=== PATIENT | male | born 1945 | race Caucasian/White ===

== ENCOUNTER 2022-06-21 08:24 | Outpatient (CLI) | payer MEDICARE, BC, SELFPAY ==
[2022-06-21 10:48] LABS: Albumin* 4.1 g/dL (3.3-5.0); Chloride* 110 mmol/L (96-114); Sodium* 143 mmol/L (135-149)
[2022-06-21 10:50] LABS: Cholesterol* 177 mg/dL (90-199); Creatinine* 0.7 mg/dL (0.5-1.5); Estimated Glomerular Filt Rate 95 ml/min
[2022-06-21 10:51] LABS: Alanine Aminotransferase* 22 U/L (4-50); Alkaline Phosphatase* 77 U/L (40-150); Aspartate Amino Transferase* 27 U/L (12-35); Bilirubin Total* 0.8 mg/dL (0.1-1.5); Blood Urea Nitrogen* 20 mg/dL (7-30); Calcium* 9.1 mg/dL (8.4-10.6); Carbon Dioxide* 26 mmol/L (20-32); HDL Cholesterol* 73 mg/dL (>=40); LDL Cholesterol Calculated 89 mg/dL (<100); Total Protein* 6.8 g/dL (6.0-8.3); Triglycerides* 76 mg/dL (40-149)
[2022-06-21 11:05] LABS: Glucose* 86 mg/dL (60-115)
[2022-06-21 11:19] LABS: PSA Screen* 1.43 ng/mL (0.10-4.00)
== END 2022-06-21 08:25 | disposition home or self-care (01) ==
PROVIDERS: PCP Internal Medicine; Visit Provider Internal Medicine
DX: I10 Essential (primary) hypertension (principal); E78.5 Hyperlipidemia, unspecified; Z12.5 Encounter for screening for malignant neoplasm of prostate
CPT/HCPCS: 80053; 80061; 84153

== ENCOUNTER 2022-07-10 13:30 | Outpatient (RCR) | payer MEDICARE, BC, SELFPAY ==
--- NOTE | 2022-05-26 13:51 | PT.OPEX ---
[facility] PT [facility] Outpatient Eval Start: 05/25/22 08:56 Freq: Status: Active Protocol: Document 05/25/22 08:57 [facility] (Rec: 05/25/22 09:37 [facility] [id number]) E-signed By Carlton Freire, PT Physical Therapy Outpatient Evaluation Insurance Information Insurance Name Medicare B Medical Diagnosis Strain of unspecified muscle, fascia and tendon at shoulder and upper arm level S46.911N Treating Diagnosis Right shoulder pain M25.[address] Phillips Subjective Subjective Right shoulder pain started ~3 -4 years ago after working on belt glass sander, repetitive use of right UE. In April 2022, he was working with tractor/ crank, pushing forward and rotating. He felt significant pain anterolateral shoulder. Pain has lessened since then, but he still has pain with movements, sleeping. He also has crepitus. Initially he experienced pain down the right arm from the shoulder; now it is isolated to front and back of shoulder. Changes positions a lot during sleep. Not currrently taking any pain meds. Pt RH Pain Comments At worst: 4/10 0/10 at rest Date of Last Physician Visit 04/26/22 Current Work Status Retired Occupation Retired dentist Preferred Name [employer] Therapy Limitations/Systems Review Not Limited Objective Range of Motion Right shoulder: AROM/ PROM Flexion: WNL Abduction: ltd when elbow flexed. Arm straight WNL ER: WNL/symmetric IR: reach to L3 Elbow flexion: 5/5, painfree Strength R shoulder: grossly 5/5, pain with abduction Swelling None Palpation No palpation tenderness right deltoid/bursa + PT right medial scap border mm + minimal PT over posterior cuff mild scapular hypomobility mild PT right biceps tendon, SH Posture Normal Mild asymmetry w/ scapulohumeral rhythm. no significant scap winging. Other/Pertinent Objective Right shoulder: Neers: negative HK Impingement test: positive with IR Sulcus sign: negative Empty can: negative Assessment Assessment/Impression 76 year old active male presents with right shoulder chronic pain x 3-4 years but with exacerbation ~one month ago after using a tractor crank, pushing and turning motion. Pain has lessened since then so is intermittent. He feels it most when using a power yamila, and reach out to the side. He presents with signs and symptoms consistent with right shoulder subacromial impingement/ mild posterior cuff tendinopathy. In general, right shoulder strength testing was strong and painfree except ER and thumb down scaption were strong but painful, implicating supraspinatus. Patient to benefit from skilled PT for manual therapy to reduce soft tissue pain and for progression of HEP to facilitate RTC strength/ flexibility and scapular stabilization. Primary Functional Limitations working with power yamila, don jacket/shirt, reach/lift arm out to side Plan of Care Rehabilitation Potential Excellent Rehabilitation Potential Comments self-motivated, otherwise healthy Physical Therapy Goals In 6-8 weeks, patient will: 1) Be able to use orbital power yamila with right shoulder painfree 2) Don/doff jacket painfree 3) Reach out to the side to retrieve 5 lb object painfree Coordination/Communication With Referral Source Treatment Plan/Direct Interventions Joint Mobilization,Manual Therapy,Neuromuscular Re-ed, Self-Care/Home Management, Therapeutic Activities, Therapeutic Exercises Direct Interventions Clarification R shoulder RTC strength/ Comments flexibility, scap stab, STM post cuff/scap border Frequency/Duration 1x/week for 6-8 weeks Patient Will Be Discharged From Therapy Independent w/HEP, Independently Progressing Evaluation Billing Untimed Code Treatment Minutes 25 Complexity Low Certification Information Initial Certification Date 05/25/22 Ending Certification Date 08/24/22 Provider Signature Shows Agreement With POC & Medical Necessity Physician Signature & Date Requested Please Sign/Date Here Physician Comment/Change : Physician NPI Number #
== END 2022-07-13 16:17 | disposition home or self-care (01) ==
PROVIDERS: PCP Internal Medicine; Visit Provider Internal Medicine
DX: M25.511 Pain in right shoulder (principal); S46.919A Strain of unspecified muscle, fascia and tendon at shoulder and upper arm level, unspecified arm, initial encounter; Z51.89 Encounter for other specified aftercare
CPT/HCPCS: 97110; 97140; 97161

== ENCOUNTER 2023-01-24 08:07 | Day surgery (SDC) | payer MEDICARE, BC, SELFPAY ==
[2023-01-24] MEDS: TETRACAINE 0.5% OPHTH 1 DROP EYE-RIGHT ×2 (08:30→08:35)
[2023-01-24] MEDS: KETOROLAC OPHTH 0.5% 1 DROP EYE-RIGHT ×2 (08:30→08:35)
[2023-01-24 08:41] VITALS: BMI 24.8
[2023-01-24 08:45] VITALS: BP 146/90; PULSE 62; RESP 16; TEMP 37; O2SAT 100
[2023-01-24] MEDS: SODIUM CHLORIDE 0.9 % (FLUSH) 10 ML SYRINGE IVF (08:47)
--- NOTE | 2023-01-24 08:50 | W.ANESCHARGE ---
Anesthesia Charges Start Date/Time Anesthesia Start Date: 01/24/23 Anesthesia Start Time: 09:43 Stop Date/Time Anesthesia Stop Date: 01/24/23 Anesthesia Stop Time: 10:17 Summary Extremes of Age - Over 70 or under 1: MDA
--- NOTE | 2023-01-24 08:51 | SUR.PREOP ---
The eye drops brought by the patient (Ketorolac and Prednisolone) are examined and I have determined they are labeled by the patient's pharmacy for this patient as prescribed by the surgeon. The bottles are intact, recently obtained and appear to be correct. [id number]
[2023-01-24] MEDS: TETRACAINE 0.5% OPHTH 2 DROP EYE-BOTH (09:46)
[2023-01-24] MEDS: BALANCED SALT IRRIG SOLN 15 ML EYE-RIGHT (09:50)
--- NOTE | 2023-01-24 10:17 | W.ANESCHARGE ---
Anesthesia Charges Start Date/Time Anesthesia Start Date: 01/24/23 Anesthesia Start Time: 09:43 Stop Date/Time Anesthesia Stop Date: 01/24/23 Anesthesia Stop Time: 10:17
[2023-01-24 10:20] VITALS: BP 138/83; PULSE 57; RESP 14; TEMP 36.9; O2SAT 100
--- NOTE | 2023-01-24 10:22 | P.OPTPRC_ITS ---
Procedure Note Date of procedure: 01/24/[address] [facility] bill your pro fee for this procedure?: Yes Procedure Description: SURGEON: Tayler Marin MD PREOPERATIVE DIAGNOSIS: Nuclear sclerotic cataract, right eye. POSTOPERATIVE DIAGNOSIS: Nuclear sclerotic cataract, right eye. NAME OF OPERATION: Phacoemulsification of cataract with posterior chamber intraocular lens implantation in the right eye. ANESTHESIA: Topical. ESTIMATED BLOOD LOSS: Less than 2 cc. COMPLICATIONS: None. PATHOLOGY SPECIMEN: None. INDICATIONS: See consult note for details. The risks, benefits and alternatives of the procedure were explained to the patient, who elected to proceed and signed informed consent to do so. PROCEDURE: The patient was brought to the pre-holding area where the right eye was identified as the operative eye. I placed my initials above this eye. The patient received eye drops consisting of 0.5% tetracaine, 1% tropicamide, 10% phenylephrine, and 0.5% ketorolac. The patient was then brought to the operating room where the right eye was again identified as the operative eye. The eye was prepped with Betadine and draped in the usual sterile ophthalmic fashion. A #15 super-sharp blade was used to create a paracentesis site. 1% non-preserved intracameral lidocaine was injected into the anterior chamber. Endocoat was injected into the anterior chamber. A 2.4 mm keratome was used to create a three-plane self-sealing incision 1 mm anterior to the temporal limbus. A cystotome was used to create an anterior capsular leaflet. The Utrata forceps were used to extend this to form a continuous curvilinear capsulorrhexis. Hydrodissection was performed. The cataract was removed with phacoemulsification using the [id number] technique. The irrigation and aspiration tip was used to remove the remaining cortex. Healon was injected into the capsular bag. An JOANNE ZCB00 intraocular lens of 20.0 diopters was injected into the capsular bag. The irrigation and aspiration tip was used to remove the remaining viscoelastic. Balanced salt solution on a cannula was used to hydrate the wound, and the wound was found to be watertight. The pupil was noted to be round. DISPOSITION: The patient was taken to the recovery room and discharged to home in stable condition. The patient was instructed to call me or go to the emergency department with any sudden change, including dramatic loss of vision, severe pain in the eye or eyebrow region, nausea, or vomiting. The patient will follow up in the clinic tomorrow morning.
== END 2023-01-24 10:45 | disposition home or self-care (01) ==
LOC: OR 08:10
PROVIDERS: PCP Internal Medicine; Visit Provider Ophthalmology
PROC: (CPT 66984; principal; 2023-01-24 08:15)
DX: H25.11 Age-related nuclear cataract, right eye (principal)
CPT/HCPCS: 66984; 00142; 99100; A9270; J2250; J3010; V2632

== ENCOUNTER 2023-02-07 08:09 | Day surgery (SDC) | payer MEDICARE, BC, SELFPAY ==
[2023-02-07] MEDS: TETRACAINE 0.5% OPHTH 1 DROP EYE-LEFT ×2 (08:25→08:35)
[2023-02-07 08:29] VITALS: BMI 24.8
[2023-02-07] MEDS: KETOROLAC OPHTH 0.5% 1 DROP EYE-LEFT ×2 (08:32→08:41)
[2023-02-07 08:34] VITALS: BP 163/95; PULSE 55; RESP 20; TEMP 36.6; O2SAT 99
[2023-02-07] MEDS: SODIUM CHLORIDE 0.9 % (FLUSH) 10 ML SYRINGE IVF (08:49)
[2023-02-07] MEDS: TETRACAINE 0.5% OPHTH 2 DROP EYE-LEFT (09:36)
[2023-02-07] MEDS: BALANCED SALT IRRIG SOLN 15 ML EYE-LEFT (09:38)
--- NOTE | 2023-02-07 09:39 | P.ANES_ITS ---
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
--- NOTE | 2023-02-07 10:02 | W.PM.OPTPROC ---
Procedure Note Date of procedure: 02/07/23 Will [facility] bill your pro fee for this procedure?: Yes Procedure Description: SURGEON: Tayler Marin MD PREOPERATIVE DIAGNOSIS: Nuclear sclerotic cataract, left eye. POSTOPERATIVE DIAGNOSIS: Nuclear sclerotic cataract, left eye. NAME OF OPERATION: Phacoemulsification of cataract with posterior chamber intraocular lens implantation in the left eye. ANESTHESIA: Topical. ESTIMATED BLOOD LOSS: Less than 2 cc. COMPLICATIONS: None. PATHOLOGY SPECIMEN: None. INDICATIONS: See consult note for details. The risks, benefits and alternatives of the procedure were explained to the patient, who elected to proceed and signed informed consent to do so. PROCEDURE: The patient was brought to the pre-holding area where the left eye was identified as the operative eye. I placed my initials above this eye. The patient received eye drops consisting of 0.5% tetracaine, 1% tropicamide, 10% phenylephrine, and 0.5% ketorolac. The patient was then brought to the operating room where the left eye was again identified as the operative eye. The eye was prepped with Betadine and draped in the usual sterile ophthalmic fashion. A #15 super-sharp blade was used to create a paracentesis site. 1% non-preserved intracameral lidocaine was injected into the anterior chamber. Endocoat was injected into the anterior chamber. A 2.4 mm keratome was used to create a three-plane self-sealing incision 1 mm anterior to the temporal limbus. A cystotome was used to create an anterior capsular leaflet. The Utrata forceps were used to extend this to form a continuous curvilinear capsulorrhexis. Hydrodissection was performed. The cataract was removed with phacoemulsification using the [id number] technique. The irrigation and aspiration tip was used to remove the remaining cortex. Healon was injected into the capsular bag. An JOANNE ZCB00 intraocular lens of 20.0 diopters was injected into the capsular bag. The irrigation and aspiration tip was used to remove the remaining viscoelastic. Balanced salt solution on a cannula was used to hydrate the wound, and the wound was found to be watertight. The pupil was noted to be round. DISPOSITION: The patient was taken to the recovery room and discharged to home in stable condition. The patient was instructed to call me or go to the emergency department with any sudden change, including dramatic loss of vision, severe pain in the eye or eyebrow region, nausea, or vomiting. The patient will follow up in the clinic tomorrow morning.
[2023-02-07 10:07] VITALS: BP 144/89; PULSE 52; RESP 16; TEMP 36.6; O2SAT 99
--- NOTE | 2023-02-07 11:06 | W.ANESCHARGE ---
Anesthesia Charges Start Date/Time Anesthesia Start Date: 02/07/23 Anesthesia Start Time: 09:30 Stop Date/Time Anesthesia Stop Date: 02/07/23 Anesthesia Stop Time: 10:02 Summary Extremes of Age - Over 70 or under 1: MDA
== END 2023-02-07 10:30 | disposition home or self-care (01) ==
PROVIDERS: PCP Internal Medicine; Visit Provider Ophthalmology
PROC: (CPT 66984; principal; 2023-02-07 08:15)
DX: H25.12 Age-related nuclear cataract, left eye (principal)
CPT/HCPCS: 66984; 00142; 99100; A9270; J2250; J3010; V2632

== ENCOUNTER 2023-07-23 08:12 | Outpatient (CLI) | payer MEDICARE, BC, SELFPAY | END 2023-07-23 08:13 | disposition home or self-care (01) | LOC: NFLDREF 07-25 11:31 | PROVIDERS: PCP Internal Medicine; Referring Provider Internal Medicine; Visit Provider Internal Medicine | DX: E78.5 Hyperlipidemia, unspecified (principal); I10 Essential (primary) hypertension; Z12.5 Encounter for screening for malignant neoplasm of prostate | CPT/HCPCS: 80053; 80061; G0103 ==

== ENCOUNTER 2024-06-18 10:06 | Emergency (ER) | payer MEDICARE, BC, SELFPAY ==
--- OUTSIDE RECORDS SUMMARY | 2024-06-18 10:08 | XMS_ITS | Clinical Summary ---
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 Gender Identity Not on file Sexual Orientation Not on file Plan of Treatment Health Maintenance Due Date Last Done Comments Tdap 08/04/1956 Depression screening for age 12+ 1956 BMI (ht and wt on same day) for age 18+ 1962 Hepatitis C screening for age 18-79 1962 Tetanus booster 1964 Pneumococcal series for age 50+ (1 of 1 - PCV) 995 Zoster (shingles) series for age 50+ (1 of 2) 08/03/18 95 Medicare Wellness for age 65+ 2009 RSV vaccine for adults or pr egnancy (1 - 1-dose 75+ series) 08/04/2019 COVID-19 vaccine series (2 - season) 4 01/24/2022 Influenza for age 65+ 01/13/2024 Insurance BLUE CROSS [place] BLUE [place] PB ONLY Care Teams Starch Treating Assistant Relationship Specialty Start Date End Date Bill Phillips MD [address] [place] [id number] PCP - General Internal Medicine 06/22/22
[2024-06-18 10:09] VITALS: BP 147/81; PULSE 80; RESP 16; TEMP 36.1; O2SAT 98; BMI 24.8
[2024-06-18] MEDS: 0.9 % SODIUM CHLORIDE 1000 ml 1,000 ML 6000 ML IV (10:30)
[2024-06-18 10:49] VITALS: O2SAT 99
[2024-06-18 10:53] LABS: Troponin, Point-of-Care* 0.01 ng/ml (0.01-0.04)
--- NOTE | 2024-06-18 10:55 | ED_ITS ---
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 He has had intermittent AFib in the past. His watch confirmed at last night. He went to bed feeling fine and had no arrhythmia symptoms. He is not on any blood thinners. He is on amlodipine, simvastatin, and he just completed prednisone for a muscle ache issue. The patient denies fever, chills, cough. He has no chest pain. His rate is controlled at 80 T 85. He does appear to be in AFib with controlled rate. He is pretty asymptomatic as mention. He has had no leg swelling edema. No history of coronary artery disease. He does report that he has had several episodes of AFib especially since COVID illness several years ago. At that time he switch from metoprolol to amlodipine. Usually his little bursts of arrhythmia or gone within a couple of hours. Does report that he had a yusuf drink last night but he has had beer alcohol occasionally in the past he does not drink very often. Has had some family history of vascular disease and rhythm issues but a an elderly grandparents. Related Data Previous Rx's ?Medication ?Instructions ?Recorded amlodipine 5 mg tablet 5 mg PO .Bedtime Hypertension #90 04/24/24 tabs simvastatin 40 mg tablet 40 mg PO .Bedtime Hyperlipidemia 04/24/24 #90 tabs prednisone 20 mg tablet 20 mg PO BID #10 tabs 06/11/24 apixaban 5 mg tablet (Eliquis) 5 mg PO BID #60 tabs 06/18/24 metoprolol succinate 25 mg 25 mg PO DAILY #30 tabs 06/18/24 tablet,extended release 24 hr Allergies Allergy/AdvReac Type Severity Reaction Status Date / Time No Known Drug Allergies Allergy Verified 06/11/24 16:28 [facility] Medical History Radiculopathy ?M54.10 - Radiculopathy, site unspecified (ICD-10) Abdominal wall strain ?S39.011A - Strain of muscle, fascia and tendon of abdomen, initial encounter (ICD-10) Health care directive on file ?Z78.9 - Other specified health status (ICD-10) COVID-19 ?U07.1 - COVID-19 (ICD-10) Rectal Pain ?K62.89 - Other specified diseases of anus and rectum (ICD-10) Otitis media ?H66.90 - Otitis media, unspecified, unspecified ear (ICD-10) Idiopathic neuropathy ?G60.9 - Hereditary and idiopathic neuropathy, unspecified (ICD-10) Shoulder strain ?S46.919A - Strain of unspecified muscle, fascia and tendon at shoulder and upper arm level, unspecified arm, initial encounter (ICD-10) Social History What is your current living situation?: I presently have a place to live Problems where you live: declined to answer In the past 12 months, utilities in danger of being shut off: no In past 12 months, lack of transportation kept you from medical appts, meetings, work, or getting things needed for daily living: no In the past 12 mos, have been you worried that your food would run out before you had money to buy more?: never true In the past 12 mos, the food you bought just didn't last and you didn't have money to buy more?: never true Smoking Status: Never smoker How often do you have a drink containing alcohol: 4 or more times a week How many standard drinks containing alcohol do you have on a typical day: 1 or 2 How often do you have six or more drinks on one occasion: Never AUDIT-C Alcohol total score: 4 Non-prescribed substance use: denies use Caffeine: Yes How often does anyone, including family, friends and others, physically hurt you : never How often does anyone, including family, friends and others, insult or talk down to you: never How often does anyone, including family, friends and others, threaten you with harm: never How often does anyone, including family, friends and others, scream or curse at you: never Exam Narrative: Exam Narrative: Objective: Vital signs show elevated blood pressure 147/81 otherwise unremarkable Alert or x3 very pleasant no facial asymmetry neck is supple chest clear Heart irregular regular 2/6 systolic murmur Abdomen is benign soft nontender Extremities are no edema neurologic nonfocal good peripheral perfusion noted Const: Vital Signs, click to edit/add: Vital Signs - 24 hr 06/18/24 10:09 06/18/24 10:49 06/18/24 11:01 Temperature 97.0 F L Pulse Rate 101 H Pulse Rate [Pulse Oximeter] 80 Respiratory Rate 16 16 Blood Pressure 147/87 H Blood Pressure [Ri ght Upper Arm] 147/81 H Pulse Oximetry 98 99 99 Oxygen Delivery Me thod Room Air 06/18/24 11:50 Temperature Pulse Rate 93 Pulse Rate [Pulse Oximeter] Respiratory Rate 16 Blood Pressure 138/96 H Blood Pressure [Ri ght Upper Arm] Pulse Oximetry 96 Oxygen Delivery Me thod Room Air Course Vital Signs Vital signs: Initial Vital Signs Temperature 97.0 F L 06/18/24 10:09 Temperature Source Temporal Artery Scan 06/18/24 10:09 Pulse Rate 80 06/18/24 10:09 Pulse Rhythm Irregular 06/18/24 10:09 Respiratory Rate 16 06/18/24 10:09 Blood Pressure 147/81 H 06/18/24 10:09 Blood Pressure Mean 103 06/18/24 10:09 Pulse Oximetry 98 06/18/24 10:09 Oxygen Delivery Method Room Air 06/18/24 10:09 Vital Signs Temperature 97.0 F L 06/18/24 10:09 Pulse Rate 80 06/18/24 10:09 Respiratory Rate 16 06/18/24 10:09 Blood Pressure 147/81 H 06/18/24 10:09 Pulse Oximetry 98 06/18/24 10:09 Oxygen Delivery Method Room Air 06/18/24 10:09 Temperature 97.0 F L 06/18/24 10:09 Pulse Rate 93 06/18/24 11:50 Respiratory Rate 16 06/18/24 11:50 Blood Pressure 138/96 H 06/18/24 11:50 Pulse Oximetry 96 06/18/24 11:50 Oxygen Delivery Method Room Air 06/18/24 11:50 Medications Administered Medications: Discontinued Medications Generic Name Dose Route Start Last Admin Trade Name Freq PRN Reason Stop Dose Admin Apixaban 5 mg 06/18/24 11:13 06/18/24 11:38 Apixaban 5 Mg Tablet PO 06/18/24 11:14 5 mg ONCE ONE Administration Sodium Chloride 1,000 mls @ 6,000 mls/hr 06/18/24 11:00 06/18/24 11:40 0.9 % Sodium Chloride 1000 Ml IV 06/18/24 11:09 Infused .Q10M RUFINA Infusion Metoprolol Succinate 25 mg 06/18/24 11:45 06/18/24 11:49 Metoprolol Succinate (Xl) 25 Mg Tab PO 06/18/24 11:46 25 mg ONCE ONE Administration Medical Decision Making MDM Narrative Medical decision making narrative: [age]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 At this point will check his electrolytes, given some IV hydration. Will discuss with Cardiology regarding optimal management. He currently is not anticoagulated. With his age in his hypertension likely would need anticoagulation if remains in AFib. Addendum; 11:32 a.m.: Discussed with Cardiology regarding his AFib and rate control. Given that he has presumed paroxysmal atrial fib the Cardiology Dr. Chaidez recommended that we do anticoagulation and rate control. I will have him switch from amlodipine to metoprolol XL 25 mg daily will have him start Eliquis 5 mg b.i.d.. Will have him set up to see Dr. Right sharp in cardiology. He will need a follow-up echo likely a stress test and Cardiology consultation. Patient was comfortable this and will follow up as directed. He will engage in light activity, good hydration. Lab Data Labs: Lab Results 06/18/24 06/18/24 Range/Units 10:30 10:50 WBC 6.84 (4.50-11.00) K/uL RBC 5.43 (4.30-5.90) m/uL Hgb 15.2 (13.5-17.5) gm/dL Hct 46.6 (37.0-53.0) % MCV 86 (80-100) fL MCH 28 (26-34) pg MCHC 33 (32-36) gm/dL RDW Coeff of [place] 14.0 (11.5-15.5) % Plt Count 202 (140-440) K/uL Neut % (Auto) 38.6 L (42.0-72.0) % Lymph % (Auto) 44.6 H (20-44) % [place] % (Auto) 13.9 H (0.0-11.0) % Eos % (Auto) 2.5 (0.0-7.0) % Baso % (Auto) 0.3 (0.0-3.0) % Neut # (Auto) 2.60 (1.7-7.0) K/uL Lymph # (Auto) 3.10 H (0.90-2.90) K/uL [place] # (Auto) 1.00 H (0.00-0.90) K/UL Eos # (Auto) 0.17 (0.00-0.50) K/uL Baso # (Auto) 0.02 (0.00-0.30) K/uL Abs Immat Gran (auto) 0.01 (0.00-0.30) K/uL Imm/Tot Granulo (auto) 0.1 % Sodium 141 (135-149) mmol/L Potassium 3.7 (3.6-5.1) mmol/L Chloride 107 (96-114) mmol/L Carbon Dioxide 23 (20-32) mmol/L Anion Gap 11 (7-15) mEq/L BUN 26 (7-30) mg/dL Creatinine 0.9 (0.5-1.5) mg/dL Estimated Creat Clear 63.80 Estimated GFR 87 ml/min Glucose 86 (60-115) mg/dL Calcium 9.6 (8.4-10.6) mg/dL Total Bilirubin 0.8 (0.1-1.5) mg/dL Direct Bilirubin 0.2 (0.0-0.5) mg/dL AST 23 (12-35) U/L ALT 23 (4-50) U/L Alkaline Phosphatase 89 (40-150) U/L Total Protein 7.3 (6.0-8.3) g/dL Albumin 4.4 (3.3-5.0) g/dL POC Troponin I 0.01 (0.01-0.04) ng/ml Discharge Plan Discharge Clinical Impression: Atrial fibrillation, Hypertension Patient Disposition: Home, Self-Care Condition: Stable Instructions: A-fib (Atrial Fibrillation) (ED), Hypertension (ED) Additional Instructions: Light activity, Eliquis and metoprolol from the pharmacy as directed, stop amlodipine. We will set up to see Dr. Phillips, and the senior chemist. Follow up appointment is scheduled at [facility] on 06/25 with an 8:00am appointment time. Please check in at 7:50am to complete paperwork. Follow up Cardiology appointment is scheduled at the [facility] on 06/26 with a 3:00pm appointment time. Please check in at 2:50pm to complete paperwork. If you have any questions or need to reschedule any appointment, please call [phone]. Activity Level: Light activity Discharge Diet: Regular Prescriptions: New metoprolol succinate 25 mg tablet extended release 24 hr 25 mg PO DAILY Qty: 30 2RF Eliquis 5 mg tablet 5 mg PO BID Qty: 60 2RF No Action amlodipine 5 mg tablet 5 mg PO .Bedtime Qty: 90 0RF simvastatin 40 mg tablet 40 mg PO .Bedtime Qty: 90 0RF prednisone 20 mg tablet 20 mg PO BID Qty: 10 0RF Follow Up/Referrals: Bill Phillips MD [Primary Care Provider] - Stand Alone Forms: [employer] Info Instructions
[2024-06-18 11:01] VITALS: BP 147/87; PULSE 101; RESP 16; O2SAT 99
--- OUTSIDE RECORDS SUMMARY | 2024-06-18 11:06 | XMS_ITS | Clinical Summary ---
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
[2024-06-18 11:11] LABS: Basophils Absolute Auto 0.02 K/uL (0.00-0.30); Basophils Percent Auto 0.3 % (0.0-3.0); Eosinophils Absolute Auto 0.17 K/uL (0.00-0.50); Eosinophils Percent Auto 2.5 % (0.0-7.0); Hematocrit 46.6 % (37.0-53.0); Hemoglobin* 15.2 gm/dL (13.5-17.5); Immature Granulocytes Abs Auto 0.01 K/uL (0.00-0.30); Immature Granulocytes Pct Auto 0.1 %; Lymphocytes Percent Auto 44.6 % (20-44); Mean Corpuscular HGB Conc 33 gm/dL (32-36); Mean Corpuscular Hemoglobin 28 pg (26-34); Mean Corpuscular Volume 86 fL (80-100); Monocytes Percent Auto 13.9 % (0.0-11.0); Neutrophils Percent Auto 38.6 % (42.0-72.0); Platelet Count* 202 K/uL (140-440); Red Blood Count 5.43 m/uL (4.30-5.90); White Blood Count* 6.84 K/uL (4.50-11.00)
[2024-06-18 11:14] LABS: Slide Review Reflex No
[2024-06-18 11:17] LABS: Chloride* 107 mmol/L (96-114); Potassium* 3.7 mmol/L (3.6-5.1); Sodium* 141 mmol/L (135-149)
[2024-06-18 11:19] LABS: Creatinine* 0.9 mg/dL (0.5-1.5); Estimated Glomerular Filt Rate 87 ml/min
[2024-06-18 11:20] LABS: Anion Gap 11 mEq/L (7-15); Blood Urea Nitrogen* 26 mg/dL (7-30); Calcium* 9.6 mg/dL (8.4-10.6); Carbon Dioxide* 23 mmol/L (20-32); Glucose* 86 mg/dL (60-115)
[2024-06-18] MEDS: APIXABAN 5 MG TABLET PO (11:38)
[2024-06-18 11:42] LABS: Albumin* 4.4 g/dL (3.3-5.0)
[2024-06-18 11:44] LABS: Bilirubin Direct* 0.2 mg/dL (0.0-0.5); Bilirubin Total* 0.8 mg/dL (0.1-1.5); Total Protein* 7.3 g/dL (6.0-8.3)
[2024-06-18 11:45] LABS: Alanine Aminotransferase* 23 U/L (4-50); Alkaline Phosphatase* 89 U/L (40-150); Aspartate Amino Transferase* 23 U/L (12-35)
[2024-06-18] MEDS: METOPROLOL SUCCINATE (XL) 25 MG TAB PO (11:49)
[2024-06-18 11:50] VITALS: BP 138/96; PULSE 93; RESP 16; O2SAT 96
== END 2024-06-18 11:59 | disposition home or self-care (01) ==
PROVIDERS: Emergency Provider Family Medicine; PCP Internal Medicine
DX: I48.91 Unspecified atrial fibrillation (principal); I10 Essential (primary) hypertension
CPT/HCPCS: 36415; 80048; 80076; 84443; 84484; 85025; 93005; 94761; 99285; A9270; J7030

== ENCOUNTER 2024-07-04 12:41 | Outpatient (CLI) | payer MEDICARE, BC, SELFPAY | END 2024-07-04 12:42 | disposition home or self-care (01) | LOC: RAD 12:42 | PROVIDERS: PCP Internal Medicine; Visit Provider Internal Medicine | DX: I48.91 Unspecified atrial fibrillation (principal); I35.1 Nonrheumatic aortic (valve) insufficiency; I34.0 Nonrheumatic mitral (valve) insufficiency; I51.7 Cardiomegaly | CPT/HCPCS: 93306 ==

== ENCOUNTER 2024-09-25 09:00 | Outpatient (CLI) | payer MEDICARE, BC, SELFPAY | END 2024-09-25 09:01 | disposition home or self-care (01) | LOC: NFLDREF 10-01 03:17 | PROVIDERS: PCP Internal Medicine; Referring Provider Internal Medicine; Visit Provider Internal Medicine Cardiovascular Disease | DX: I48.91 Unspecified atrial fibrillation (principal); E78.5 Hyperlipidemia, unspecified | CPT/HCPCS: 80048; 80061 ==

== ENCOUNTER 2024-10-26 08:52 | Outpatient (CLI) | payer MEDICARE, BC, SELFPAY | END 2024-10-26 08:53 | disposition home or self-care (01) | PROVIDERS: PCP Internal Medicine | DX: R31.9 Hematuria, unspecified (principal); R30.0 Dysuria | CPT/HCPCS: 85610; 85730 ==